=== PATIENT | female | born 1990 | race Caucasian/White ===

== ENCOUNTER 2020-06-12 04:22 | Inpatient (IN) | payer SELFPAY ==
[2020-06-12] MEDS ORDERED: LIDOCAINE (2%) 20 MG/1 ML VIAL 20 ML MDV INFILTRATI ONE (05:48)
[2020-06-12] MEDS ORDERED: MINERAL OIL 30 ML ORAL LIQD PO PRN (05:48)
[2020-06-12] MEDS ORDERED: BUTORPHANOL 2 MG/1 ML INJ IV PRN (05:48)
[2020-06-12] MEDS ORDERED: ePHEDrine SULFATE 50 MG/1 ML INJ IV PRN (05:48)
[2020-06-12] MEDS ORDERED: TERBUTALINE 1 MG/1 ML INJ SUB-Q PRN (05:48)
[2020-06-12] MEDS ORDERED: AMPICILLIN 2 GM in SODIUM CHLORIDE 0.9% 50 ML IV ONE (05:50)
[2020-06-12] MEDS ORDERED: OXYTOCIN DRIP 30 UNITS/500 ML BAG IV SCH (06:00)
[2020-06-12] MEDS ORDERED: AMPICILLIN/NS 2 GM/100 ML 2 GM/100 ML BAG IV ONE (06:00)
[2020-06-12] MEDS ORDERED: LACTATED RINGERS 1,000 ML IV SCH (06:00)
[2020-06-12 06:15] LABS: Hematocrit 33.5 % (30.3-42.9); Hemoglobin 11.7 gm/dl (10.1-14.3); Mean Corpuscular HGB Conc 35 % (30-34); Mean Corpuscular Volume 87 fl (79-97); Platelet Count 258 K/mm3 (140-440); Red Blood Count 3.84 M/mm3 (3.65-5.03); Red Cell Distribution Width 13.3 % (13.2-15.2)
[2020-06-12] MEDS ORDERED: fentaNYL 100 MCG/2 ML INJ IV NR (07:53)
--- NOTE | 2020-06-12 08:27 | Anesthesia Consultation ---
Anesthesia Consult and Med Hx Date of service: 06/12/20 - Airway Anesthetic Teeth Evaluation: Good ROM Head & Neck: Adequate Mental/Hyoid Distance: Adequate Mallampati Class: Class II Intubation Access Assessment: Good - Pulmonary Exam CTA: Yes - Cardiac Exam Cardiac Exam: RRR - Pre-Operative Health Status ASA Pre-Surgery Classification: ASA2 Proposed Anesthetic Plan: Epidural - Pulmonary Hx Smoking: No Hx Asthma: No COPD: No Hx Pneumonia: No Hx Sleep Apnea: No - Cardiovascular System Hx Hypertension: No Hx Heart Attack/AMI: No Hx Angina: No - Central Nervous System Hx Seizures: No Hx Psychiatric Problems: No - Gastrointestinal Hx Gastroesophageal Reflux Disease: No - Endocrine Hx Renal Disease: No Hx End Stage Renal Disease: No Hx Insulin Dependent Diabetes: No Hx Non-Insulin Dependent Diabetes: No Hx Hypothyroidism: No Hx Hyperthyroidism: No - Hematic Hx Anemia: No Hx Sickle Cell Disease: No - Other Systems Hx Alcohol Use: Yes
--- NOTE | 2020-06-12 08:31 | Progress Note ---
Labor Epidural - Labor Epidural Start Time: 08:00 Stop Time: 08:25 Performed by:: JAN GTZ ([facility]) Procedure: Patient is requesting a laboring epidural for laboring pain. Patient IDed, H&P reviewed, all questions and concerns were answered, and consent was signed. Timeout was performed at bedside. Patient in sitting position. Sterile prep and drape was performed. 3ml of 1% lidocaine skin wheal at L[3]- L [4]. 18- gauge Touhy epidural needle was advanced to 3.5cm, upon removal of stylet there was +CSF. Intrathecal catheter advanced to [7] centimeters. [+] Aspiration of CSF -blood Sterile dressing applied. Patient tolerated procedure. RN notified of Intrathecal cath and given explicit instructions regarding its management. RN also instructed to call for any questions and when patient had delivered.
[2020-06-12] MEDS ORDERED: NALOXONE 2 MG/2 ML INJ IV PRN (09:00)
[2020-06-12] MEDS ORDERED: diphenhydrAMINE 50 MG/ML VIAL IV PRN (09:00)
[2020-06-12] MEDS ORDERED: ONDANSETRON 4 MG/2 ML INJ IV PRN ×2 (09:00→11:48)
[2020-06-12] MEDS ORDERED: fentaNYL-BUPIV 2 MCG/ML-0.125% 200 MCG/100 ML BAG EPIDURAL SCH (09:00)
[2020-06-12] MEDS ORDERED: NalbUPHINE 10 MG/1 ML INJ IV PRN (09:00)
[2020-06-12] MEDS ORDERED: AMPICILLIN/NS 1 GM/50 ML 1 GM/50 ML BAG IV SCH (10:00)
--- NOTE | 2020-06-12 11:33 | History and Physical Report ---
History of Present Illness Date of examination: 06/12/20 Date of admission: 06/12/20 10:47 Chief complaint: "I"m having some contractions" History of present illness: 29 y/o female arrived at [facility] ob triage @ 40.1 wks with c/o uc and pos FM. She denied VB or LOF. Pt states she initiated her pnc at [facility] [place] at 18 wks. Pt reports a hx of PIH (last preg)and depression. Pt was started on Zoloft this preg. Surgical/social/family hx unremarkable. Pt was found to be bismark and in active labor. She was admitted to L&D for delivery. GBS unknown. No records were available. Past History Past Medical History: other (hx PIH and depression) Past Surgical History: no surgical history Family/Genetic History: none Social history: no significant social history - Obstetrical History Expected Date of Delivery: 06/11/20 Actual Gestation: 40 Week(s) 1 Day(s) : 5 Para: 3 Hx # Term Pregnancies: 3 Spontaneous Abortions: 1 Induced : 0 Number of Living Children: 3 Medications and Allergies Allergies Allergy/AdvReac Type Severity Reaction Status Date / Time No Known Allergies Allergy Unverified 06/12/20 05:48 Active Meds: Active Medications Butorphanol Tartrate (Butorphanol 2 Mg/1 Ml Inj) 2 mg IV Q2H PRN PRN Reason: Pain , Severe (7-10) Diphenhydramine HCl (Diphenhydramine 50 Mg/Ml Vial) 12.5 mg IV Q2H PRN PRN Reason: Itching Ephedrine Sulfate (Ephedrine Sulfate 50 Mg/1 Ml Inj) 10 mg IV Q2M PRN PRN Reason: Hypotension Last Admin: 06/12/20 08:41 Dose: 10 mg Documented by: Oxytocin/Sodium Chloride (Pitocin/Ns 30 Unit/500ml) 30 units in 500 mls @ 2 mls/hr IV TITR SMITA; Protocol Lactated Ringer's (Lactated Ringers) 1,000 mls @ 125 mls/hr IV DIRECT SMITA Last Admin: 06/12/20 06:15 Dose: 125 mls/hr Documented by: Ampicillin Sodium (Ampicillin/Ns 1 Gm/50 Ml) 1 gm in 50 mls @ 100 mls/hr IV Q4H SMITA; Protocol Fentanyl/Bupivacaine/Sodium Chlor (Fentanyl-Bupiv 2 Mcg/Ml-0.125%) 200 mcg in 100 mls @ 2 mls/hr EPIDURAL TITR SMITA; Protocol Mineral Oil (Mineral Oil 30 Ml Oral Liqd) 30 ml PO QHS PRN PRN Reason: Constipation Nalbuphine HCl (Nalbuphine 10 Mg/1 Ml Inj) 2.5 mg IV Q2H PRN PRN Reason: Itching Naloxone HCl (Naloxone 2 Mg/2 Ml Inj) 0.2 mg IV Q5M PRN PRN Reason: Respiratory sedation Ondansetron HCl (Ondansetron 4 Mg/2 Ml Inj) 4 mg IV Q8H PRN PRN Reason: Nausea And Vomiting Terbutaline Sulfate (Terbutaline 1 Mg/1 Ml Inj) 0.25 mg SUB-Q ONCE PRN PRN Reason: Hyperstimulation/Hypertonicity Review of Systems All systems: negative Eyes: deferred Ears, nose, mouth and throat: deferred Breasts: normal Genitourinary: normal appearance Rectal Exam: deferred - Vital Signs Vital signs: Vital Signs Pulse BP 81 118/73 06/12/20 05:43 06/12/20 05:43 Temp Pulse Resp BP Pulse Ox 92 H 116/66 99 06/12/20 11:18 06/12/20 11:01 06/12/20 11:18 - Physical Exam Breasts: Positive: normal Abdomen: Positive: normal appearance, soft, normal bowel sounds, other (GRAVID) Genitourinary (Female): Positive: normal external genitalia, normal perenium Vulva: both: normal Anus/Rectum: Positive: normal perianal skin Extremities: Positive: normal - Obstetrical FHR: auscultation normal, category 1 Uterine Contraction Monitor Mode: External Cervical Dilatation: 4 Cervical Effacement Percentage: 50 station: -3 Uterine Contraction Pattern: Regular Uterine Tone Measurement Phase: Resting Uterine Contraction Intensity: Moderate Results Result Diagrams: 06/12/20 05:45 Abnormal lab results 06/12/20 Range/Units 05:45 MCHC 35 H (30-34) % All other labs normal. Assessment and Plan A: IUP@ 40.1 wks GBS unknown Depression Hx of PIH p: Admit to L&D Continuous monitoring GBS prophylaxis Pain med/Epidural prn Obtain MR from provider Anticipate - Patient Problems (1) Prior complicated by PIH, antepartum Current Visit: Yes Status: Acute (2) Depression affecting Current Visit: Yes Status: Acute
[2020-06-12] MEDS ORDERED: PROMETHAZINE 25 MG TAB PO PRN (11:48)
[2020-06-12] MEDS ORDERED: diphenhydrAMINE 25 MG CAP PO PRN (11:48)
[2020-06-12] MEDS ORDERED: MAGNESIUM HYDROXIDE (MOM) ORAL LIQD UDC PO PRN (11:48)
[2020-06-12] MEDS ORDERED: LANOLIN/ZINC/DIMETHICONE (LANSINOH) 7 GM TP PRN (11:48)
[2020-06-12] MEDS ORDERED: PROMETHAZINE 25 MG RECT SUPP PR PRN (11:48)
[2020-06-12] MEDS ORDERED: WITCH HAZEL/ GLYCERIN PAD TP PRN (11:48)
[2020-06-12] MEDS: IBUPROFEN 600 MG TAB PO SCH ×2 (12:11→18:25)
--- NOTE | 2020-06-12 12:11 | Procedure Note ---
OB Delivery Note - Delivery Date of Delivery: 06/12/20 Surgeon: DAVION QUINTANA Junior Financial Analyst: DAVION QUINTANA Estimated blood loss: 200cc - Vaginal Delivery presentation: vertex Delivery position: OA Delivery induction: none Delivery augmentation: pitocin Delivery monitor: external FHT, external uterine Route of delivery: Delivery placenta: spontaneous Delivery cord: 3 umbilical vessels Episiotomy: none Delivery laceration: none Anesthesia: other (SPINAL) Delivery comments: Called to for delivery SVE 10/100%/+1 and pt was pushing. of a viable live female infant in OA position. Spontaneous delivery of head. Shoulders were delivered with pt in Peyton position while nurse applied s/p pressure r/t pt's poor pushing efforts. was placed on mom's chest stimulated and dried while cord was clamped times 2 and cut then baby was given to awaiting GIOVANNI nurse for an initial assess. 8/9 Spontaneous delivery of intact placenta with CVX3. FF@ U2 with uterine massage and IV Pitocin. Exploration of tears revealed none. Mom and baby left in stable cond in the care of the L&D nurse. EBL 200cc. FW 3428 Gms - Infant A at 1 minute: 8 at 5 minutes: 9 Gender: Female (fw 3428 Gms)
--- NOTE | 2020-06-12 17:52 | Post Anesthesia Evaluation ---
- Post Anesthesia Evaluation Patient Participated: Yes Airway Patent: Yes Stable Respiratory Function: Yes Nausea/Vomiting: No Temp > 96.8F: Yes Pain Manageable: Yes Adequeate Hydration: Yes Anesthesia Complications: No Block Receding Appropriately: Yes Patient on Ventilator: No
[2020-06-12] MEDS: ACETAMINOPHEN 325 MG TAB PO PRN (21:39)
[2020-06-13 00:23] LABS: Hematocrit 31.2 % (30.3-42.9); Hemoglobin 10.7 gm/dl (10.1-14.3)
[2020-06-13] MEDS: IBUPROFEN 600 MG TAB PO SCH ×4 (00:38→18:17)
[2020-06-13] MEDS: ACETAMINOPHEN 325 MG TAB PO PRN (08:00)
--- NOTE | 2020-06-13 11:12 | Discharge Summary ---
Providers - Providers Date of Admission: 06/12/20 10:47 Date of discharge: 06/13/20 Attending physician: KYM STAFFORD Primary care physician: KYM STAFFORD Hospitalization Reason for admission: active labor Delivery: Episiotomy: none Laceration: none Other procedures: none complications: none Discharge diagnosis: IUP at term delivered baby: female Hospital course: See admission H & P; OB delivery summary and PP progress notes Condition at discharge: Good Disposition: DC-01 TO HOME OR SELFCARE - Discharge Diagnoses (1) Status post normal vaginal delivery Status: Acute (2) Anemia Status: Acute Qualifiers: Anemia type: other cause Other causes of anemia: acute posthemorrhagic Qualified Code(s): D62 - Acute posthemorrhagic anemia Comment: Asymptomatic Plan - Provider Discharge Summary Activity: routine, no sex for 6 weeks, no heavy lifting 4 weeks, no strenuous exercise Diet: other (Iron rich diet) Instructions: routine Additional instructions: [] Smoking cessation referral if applicable(refer to patient education folder for contact #) [] Refer to [facility] Booklet Call your doctor immediately for: * Fever > 100.5 * Heavy vaginal bleeding ( >1 pad per hour) * Severe persistent headache * Shortness of breath * Reddened, hot, painful area to leg or breast - Follow up plan Follow up: KYM STAFFORD MD [Primary Care Provider] - 6 Weeks Forms: [facility] Discharge Summary
--- NOTE | 2020-06-13 17:26 | Event Note ---
Date: 06/13/20 (PDPH) CTSP re: GUSMAN. Pt reports a postural, frontal headache. It is relieved by laying down. She denies diplopia or visual changes. I offered her a choice of medical management or an epidural blood patch. She would like to go with medical management and we will reevaluate her in the AM prior to her discharge.
[2020-06-13] MEDS: BUTALB/ACETAMINOPHEN/CAFFEINE TAB PO PRN ×2 (18:13→22:54)
[2020-06-13] MEDS ORDERED: LACTATED RINGERS 1,000 ML IV ONE (18:45)
[2020-06-14] MEDS: BUTALB/ACETAMINOPHEN/CAFFEINE TAB PO PRN ×3 (04:48→13:12)
[2020-06-14] MEDS: IBUPROFEN 600 MG TAB PO SCH ×4 (06:05→17:05)
--- NOTE | 2020-06-14 15:25 | Progress Note ---
Subjective Date of service: 06/14/20 Principal diagnosis: PDPH Interval history: Patient has improvement of PDPH symptoms but wishes EBP before d/c. Procedure performed with complete resolution of symptoms and patient ok to be d/c home after laying supine for 1 hour. Objective - Constitutional Vitals: Vital Signs - 12hr 06/14/20 07:55 Temperature 97.8 F Pulse Rate 68 Respiratory 18 Rate Blood Pressure 105/63 O2 Sat by Pulse 97 Oximetry - Labs CBC & Chem 7: 06/12/20 23:58
--- NOTE | 2020-06-14 15:28 | Progress Note ---
Labor Epidural - Labor Epidural Start Time: 15:00 Stop Time: 15:20 Performed by:: RANDY GUILLORY Procedure: Patient is requesting epidural blood patch for post dural puncture headache. H&P, and labs reviewed. Procedure explained, questions answered, consent obtained. Patient in sitting position with blood pressure cuff and pulse ox on and working. Timeout performed immediately before start of procedure. Sterile betadine prep/drape. 3 mL 1% lidocaine skin wheal at L2-L3. 18-gauge Hustead epidural needle advanced to [id number] with saline at [7] cm. 17 ml blood drawn in sterile fashion injected until resolution of symptoms and complaint of back pain. Patient tolerated procedure well. Pablo SRNA
[2020-06-14 17:40] VITALS: BP 113/68
== END 2020-06-14 18:05 | disposition home or self-care (01) | DRG 806 ==
LOC: TRG 04:22 → APU 04:34 → LD 06:14 → TRG 10:47 → LD 10:47 → OB 14:00
PROVIDERS: ADMIT Obstetrics & Gynecology; ATTEND Obstetrics & Gynecology
PROC: 10E0XZZ Delivery of Products of Conception, External Approach (ICD-10-PCS; principal; 2020-06-12)
DX: O99.344 Other mental disorders complicating childbirth (principal); D62 Acute posthemorrhagic anemia; Z37.0 Single live birth; O99.02 Anemia complicating childbirth; F32.9 Major depressive disorder, single episode, unspecified; Z20.828 Contact with and (suspected) exposure to other viral communicable diseases; Z3A.40 40 weeks gestation of pregnancy
CPT/HCPCS: 36415; 85014; 85018; 85027; 86592; 86850; 86900; 86901; G0378; J0290; J2405; J7120; U0003